=== PATIENT | female | born 1980 | race African-American/Black ===

== ENCOUNTER 2020-08-24 16:39 | Emergency (ER) | payer SELFPAY ==
[~2020-08-24] VITALS: Ht 177.8 cm; Wt 147.0 kg
[2020-08-24] MEDS ORDERED: diphenhydrAMINE HCL 25 MG CAPSULE PO ONE (17:30)
[2020-08-24] MEDS ORDERED: traMADol 50 MG TABLET PO ONE (17:30)
--- NOTE | 2020-08-24 18:18 | RAD ---
INDICATION: Back pain COMPARISON: None. IMPRESSION: Lumbar spine: 3 views obtained. There is some degenerative changes of the lumbar spine with osteophyt e formation at the vertebral body endplates as well as facet hypertrophy. No evidence of dislocation. A definite acute fracture line is not visualized. Electronically signed by: Carlos Santana MD (08/24/2020 6:16 PM) [id number]
--- NOTE | 2020-08-24 18:45 | RAD ---
Exam: Bilateral knees 4 views INDICATION: Knee pain, bilateral TECHNIQUE: Frontal, lateral, oblique and sunrise views of the knees bilaterally Comparisons: None FINDINGS: Left knee: Bone mineralization is normal. No acute or healed fractures. Soft tissues are unremarkable. There is mild joint space narrowing greatest in the lateral compartment. Right knee: Bone mineralization is normal. No acute or healed fractures. Soft tissues are unremarkable. There is mild joint space narrowing greatest at the lateral component. IMPRESSION: No acute osseous abnormality of the right or left knee. Mild degenerative changes described above. Electronically signed by: Demetrio Long MD (08/24/2020 6:42 PM) ANJUM
[2020-08-24] MEDS ORDERED: CYCL-331 PO (19:04)
--- NOTE | 2020-08-24 19:04 | PHYS DOC ---
Past History Past Medical History: Hypertension Alcohol Use: None General Adult EDM: Chief Complaint: BACK PAIN OR INJURY HPI: HPI: Patient is [id number] female who presents with bilateral knee pain and lower back pain. Patient denies injury. Patient states that the back pain started yesterday. Patient denies taking anything for pain. Review of Systems: Review of Systems: Constitutional: Denies fever or chills Eyes: Denies change in visual acuity HENT: Denies nasal congestion or sore throat Respiratory: Denies cough or shortness of breath Cardiovascular: Denies chest pain or edema GI: Denies abdominal pain, nausea, vomiting, bloody stools or diarrhea : Denies dysuria Musculoskeletal: Reports lower back pain, bilateral knee pain Integument: Denies rash Neurologic: Denies headache, focal weakness or sensory changes Endocrine: Denies polyuria or polydipsia Lymphatic: Denies swollen glands Psychiatric: Denies depression or anxiety Current Medications: Current Meds: Current Medications Medications (Trade) Dose Ordered Sig/Theron Start Time Stop Time Status Last Admin Dose Admin Diphenhydramine HCl (Benadryl) 25 mg 1X ONCE 08/24/20 17:30 08/24/20 18:05 DC 08/24/20 17:30 25 MG Tramadol HCl (Ultram) 50 mg 1X ONCE 08/24/20 17:30 08/24/20 18:05 DC 08/24/20 17:30 50 MG Allergies: Allergies: Allergies Coded Allergies Type Severity Reaction Last Updated Verified lisinopril Allergy Intermediate 08/24/20 Yes morphine Allergy Intermediate 08/24/20 Yes Physical Exam: PE: Constitutional: Well developed, well nourished, no acute distress, non-toxic appearance. [] HENT: Normocephalic, atraumatic, bilateral external ears normal, oropharynx moist, no oral exudates, nose normal. [] Eyes: PERRLA, EOMI, conjunctiva normal, no discharge. [] Neck: Normal range of motion, no tenderness, supple, no stridor. [] Cardiovascular:Heart rate regular rhythm, no murmur [] Lungs & Thorax: Bilateral breath sounds clear to auscultation [] Abdomen: Bowel sounds normal, soft, no tenderness, no masses, no pulsatile masses. [] Skin: Warm, dry, no erythema, no rash. [] Back: Lower back tenderness, no CVA tenderness. [] Extremities: Bilateral knee tenderness, no cyanosis, no clubbing, ROM intact, no edema. [] Neurologic: Alert and oriented X 3, normal motor function, normal sensory function, bilateral pedal pulses intact Psychologic: Affect normal, judgement normal, mood normal. [] Current Patient Data: Vital Signs: Vital Signs Date Time Temp Pulse Resp B/P (MAP) Pulse Ox O2 Delivery O2 Flow Rate FiO2 08/24/20 17:30 18 98 08/24/20 17:15 98.2 81 151/92 (111) Room Air EKG: EKG: [] Radiology/Procedures: Radiology/Procedures: [] INDICATION: Back pain COMPARISON: None. IMPRESSION: Lumbar spine: 3 views obtained. There is some degenerative changes of the lumbar spine with osteophyte formation at the vertebral body endplates as well as facet hypertrophy. No evidence of dislocation. A definite acute fracture line is not visualized. Electronically signed by: Carlos Santana MD (08/24/2020 6:16 PM) [id number] Exam: Bilateral knees 4 views INDICATION: Knee pain, bilateral TECHNIQUE: Frontal, lateral, oblique and sunrise views of the knees bilaterally Comparisons: None FINDINGS: Left knee: Bone mineralization is normal. No acute or healed fractures. Soft tissues are unremarkable. There is mild joint space narrowing greatest in the lateral compartment. Right knee: Bone mineralization is normal. No acute or healed fractures. Soft tissues are unremarkable. There is mild joint space narrowing greatest at the lateral component. IMPRESSION: No acute osseous abnormality of the right or left knee. Mild degenerative changes described above. Electronically signed by: Demetrio Long MD (08/24/2020 6:42 PM) [facility] Heart Score: Risk Factors: Risk Factors: DM, Current or recent (<one month) smoker, HTN, HLP, family history of CAD, obesity. Risk Scores: Score 0 - 3: 2.5% MACE over next 6 weeks - Discharge Home Score 4 - 6: 20.3% MACE over next 6 weeks - Admit for Clinical Observation Score 7 - 10: 72.7% MACE over next 6 weeks - Early Invasive Strategies Course & Med Decision Making: Course & Med Decision Making Pertinent Labs and Imaging studies reviewed. (See chart for details) []Patient is a-year-old female who presents with bilateral knee pain and lower back pain. Patient denies injury. Patient states that the back pain started yesterday. Patient denies taking anything for pain. Patient given Toradol, Benadryl for headache and pain. CT of lower back is negative for any acute abnormalities. Bilateral knee x-rays are negative. Explained to patient she needs to be taking ibuprofen and Tylenol at home for discomfort. Rice instructions given. Patient given a prescription for Flexeril. Patient instructed to return to emergency room with worsening symptoms or concerns. Patient agrees with this plan. "I am going to follow-up with my PCP tomorrow over video conference and see what we can do for further testing". Tod Disclaimer: Tod Disclaimer: This electronic medical record was generated, in whole or in part, using a voice recognition dictation system. Departure Departure: Impression: Primary Impression: Low back pain Qualified Codes: M54.5 - Low back pain Additional Impression: Knee pain, bilateral Qualified Codes: M25.561 - Pain in right knee; M25.562 - Pain in left knee Disposition: 01 DC HOME SELF CARE/HOMELESS Condition: GOOD Referrals: PCP,UNKNOWN (PCP) Patient Instructions: Back Pain, Adult Additional Instructions: You were seen in the emergency room for lower back pain and bilateral knee pain. X-rays were negative for any acute abnormalities. You can take ibuprofen at home for pain. Prescription for Flexeril was given to take at home. Please follow-up with your PCP tomorrow for further testing. Please return to the emergency room with worsening symptoms or concerns. EMERGENCY DEPARTMENT GENERAL DISCHARGE INSTRUCTIONS Thank you for coming to [facility] (ED) today and trusting us with you care. We trust that you had a positivie experience in our Emergency Department. If you wish to speak to the department management, you may call the director at [phone]. YOUR FOLLOW UP INSTRUCTIONS ARE FOLLOWS: 1. Do you have a private Doctor? If you do not have a private doctor, please ask for a resource list of physicians or clinics that may be able to assist you with follow up care. 2. The Emergency Physician has interpreted your x-rays. The X-Ray specialist will also review them. If there is a change in the findings, you will be notified in 48 hours when at all possible. 3. A lab test or culture has been done, your results will be reviewed and you will be notified if you need a change in treatment. ADDITIONAL INSTRUCTIONS AND INFORMATION: 1. Your care today has been supervised by a physician who is specially trained in emergency care. Many problems require more than one evaluation for a complete diagnosis and treatment. We recommend that you schedule your follow up appointment as recommended to ensure complete treatment of you illness or injury. If you are unable to obtain follow up care and continue to have a problem, or if your condition worsens, we recommend that you return to the ED. 2. We are not able to safely determine your condition over the phone nor are we able to give sound medical advice over the phone. For these safety reasons, if you call for medical advice we will ask you to come to the ED for further evaluation. 3. If you have any questions regarding these discharge instructions please call the ED at [phone]. SAFETY INFORMATION: In the interest of safety, wellness, and injury prevention; we encourage you to wear your sealbelt, if you smoke; quite smoking, and we encourage family to use a protective helmet for bicycling and other sporting events that present an increased risk for head injury. IF YOUR SYMPTOMS WORSEN OR NEW SYMPTOMS DEVELOP, OR YOU HAVE CONCERNS ABOUT YOUR CONDITION; OR IF YOUR CONDITION WORSENS WHILE YOU ARE WAITING FOR YOUR FOLLOW UP APPOINTMENT; EITHER CONTACT YOUR PRIMARY CARE DOCTOR, THE PHYSICIAN WHOSE NAME AND NUMBER YOU WERE GIVEN, OR RETURN TO THE ED IMMEDIATELY. Scripts Cyclobenzaprine Hcl (CYCLOBENZAPRINE HCL) 10 Mg Tablet 1 TAB PO TID for muscle pain, #15 TAB Prov: ARACELIS JULIEN APRN 08/24/20 ARACELIS JULIEN APRN Aug 24, 2020 19:04
[2020-08-24] MEDS ORDERED: HYDROcodone/APAP 5/325MG 1 TAB TABLET PO ONE (19:15)
[2020-08-24 19:38] VITALS: BP 148/89
== END 2020-08-24 19:38 | disposition home or self-care (01) ==
LOC: ER 16:39
DX: M54.5 Low back pain (principal); G89.29 Other chronic pain; I10 Essential (primary) hypertension
CPT/HCPCS: 72100; 73564; 99284; Q0163

== ENCOUNTER 2020-09-05 14:53 | Emergency (ER) | payer SELFPAY ==
[~2020-09-05] VITALS: Ht 177.8 cm; Wt 154.0 kg
[~2020-09-05 14:53] MED LIST: CYCL-331 PO
[2020-09-05 15:06] VITALS: BP 153/102
[2020-09-05 16:27] LABS: CLARITY,URINE CLEAR; COLOR,URINE COLORLESS; GLUCOSE,URINE >=1000 mg/dL (NEG)
[2020-09-05 16:28] LABS: BACTERIA,URINE 0 /HPF (0-FEW); BILIRUBIN,URINE NEG (NEG); NITRITE,URINE NEG (NEG); SQUAMOUS EPITHELIAL CELL,UR MOD /LPF; UROBILINOGEN,URINE 0.2 mg/dL (0.2 mg/dL); WBC,URINE 0 /HPF (0-4)
[2020-09-05] MEDS ORDERED: METR70GE14 VG (17:09)
[2020-09-05] MEDS ORDERED: DOXY100C14 PO (17:09)
--- NOTE | 2020-09-05 17:09 | PHYS DOC ---
Past History Past Medical History: Anxiety, Depression, Diabetes, Hypertension, Other Additional Past Medical Histor: borderline personality Alcohol Use: Occasionally General Adult EDM: Chief Complaint: PAIN ON URINATION HPI: HPI: 32-year-old homeless female past medical history significant for diabetes, hypertension and anxiety/depression, presents the ED with complaints of burning with urination and external, pruritic vaginal discharge, is concerned for bacterial vaginosis. Reports no production with her recent male sexual partner- states he had recently got back together so STIs are possible. Patient asks if she can leave and we call her with the results. Also reports "hives" when she gets nervous and hospitals stress her out. Denies any associated malodorous discharge, abdominal or pelvic pain or low back pain. States she tried [id number] Monistat with no relief. Review of Systems: Review of Systems: Constitutional: Denies fever or chills Eyes: Denies change in visual acuity HENT: Denies nasal congestion or sore throat Respiratory: Denies cough or shortness of breath Cardiovascular: Denies chest pain or hemoptysis GI: Denies abdominal pain, nausea, vomiting, bloody stools or diarrhea : Denies hematuria, vaginal bleeding Musculoskeletal: Denies back pain or joint pain Integument: Denies diaphoresis or swelling Neurologic: Denies headache, focal weakness or sensory changes Endocrine: Denies polyuria or polydipsia Lymphatic: Denies swollen glands Psychiatric: Denies depression or anxiety Allergies: Allergies: Allergies Coded Allergies Type Severity Reaction Last Updated Verified lisinopril Allergy Intermediate 08/24/20 Yes morphine Allergy Intermediate 08/24/20 Yes Physical Exam: PE: Constitutional: Well developed, well nourished, no acute distress, non-toxic appearance, obese HENT: Normocephalic, atraumatic, Eyes: EOMI, conjunctiva normal, no discharge. Neck: Normal range of motion, supple, Cardiovascular: S1/2 present, regular rhythm Lungs & Thorax: Speaking in full sentences, bilateral equal chest rise, no tachypnea or increased work of breathing Abdomen: soft, no tenderness, Skin: Warm, dry, actively scratching legs that show mild scratch [place] with healed scars and petechiae with underlying redness, no raised wheals or urticaria, Back: No tenderness, no CVA tenderness. [] Extremities: No tenderness, no cyanosis, no lower extremity edema Neurologic: Alert and oriented X 3, normal motor function, normal sensory function, no focal deficits noted. [] Psychologic: Affect normal, judgement normal, mood normal, is disrespectful despite informing her this is the emergency department-not a pcp office, persistent demands and frequently calling her nurse -refusing my recommendations Pelvic:pt refusing "that's too much just give me something for my itchiness," Current Patient Data: Labs: Laboratory Tests Test 09/05/20 15:35 09/05/20 16:06 Urine Collection Type Unknown Urine Color Colorless Urine Clarity Clear Urine pH 6.5 Urine Specific [place] 1.010 Urine Protein Neg (NEG-TRACE) Urine Glucose (UA) >=1000 mg/dL (NEG) Urine Ketones (Stick) 15 mg/dL (NEG) Urine Blood Small (NEG) Urine Nitrite Neg (NEG) Urine Bilirubin Neg (NEG) Urine Urobilinogen Dipstick 0.2 mg/dL (0.2 mg/dL) Urine Leukocyte Esterase Neg (NEG) Urine RBC 3-5 /HPF (0-2) Urine WBC 0 /HPF (0-4) Urine Squamous Epithelial Cells Mod /LPF Urine Bacteria 0 /HPF (0-FEW) POC Urine HCG, Qualitative hcg negative (Negative) Vital Signs: Vital Signs Date Time Temp Pulse Resp B/P (MAP) Pulse Ox O2 Delivery O2 Flow Rate FiO2 09/05/20 15:06 97.9 133 16 153/102 (119) 96 Room Air EKG: EKG: [] Radiology/Procedures: Radiology/Procedures: [] Heart Score: C/O Chest Pain: No Risk Factors: Risk Factors: DM, Current or recent (<one month) smoker, HTN, HLP, family history of CAD, obesity. Risk Scores: Score 0 - 3: 2.5% MACE over next 6 weeks - Discharge Home Score 4 - 6: 20.3% MACE over next 6 weeks - Admit for Clinical Observation Score 7 - 10: 72.7% MACE over next 6 weeks - Early Invasive Strategies Course & Med Decision Making: Course & Med Decision Making Pertinent Labs and Imaging studies reviewed. (See chart for details) Concern for dysuria with unprotected intercourse unprotected vaginal discharge. Recently treated herself with [id number] Monistat with no improvement in symptoms. Pt refusing pelvic exam and refusing to swab herself for wet prep/GC stating "I'm on a timeframe, I just need to get out of here." Patient with medical decision-making capacity and aware without thorough evaluation, life- threatening conditions including sepsis, PID, vaginal hemorrhage are not excluded, can result in infertility, chronic pain and . Patient and says she received something for pain. U/A with no bacteria or wbc.small blood but no flank pain back pain or abdominal pain. Will prescribe Flagyl empiracally with doxycycline, will refer to local health department for STI testing. Will discharge home with strict ED return precautions were given for brisk vaginal bleeding, fever, abdominal or pelvic pain. Encouraged urgent outpatient follow- up with PMD and [facility] [employer]. Life-threatening processes were considered but are low suspicion at this time, given history, physical exam and ED workup. Pt was educated on all prescription medications and adverse effects. All patient's questions were answered and pt was stable at time of discharge. Life/limb-threatening differential includes but is not limited to, AAA/AAD, pid/sepsis/infection, chronic pain, vaginal bleeding/hemorrhage or traumatic injury. I spoken with the patient and her caregivers. I explained the patient's condition, diagnoses and treatment plan based on the information available to me at this time. I have answered the patient and her caregiver's questions and addressed any concerns. The patient and her caregivers have a good understanding of patient's diagnosis, condition and treatment plan as can be expected at this point. Vital signs have been stable. Patient's condition is stable and appropriate for discharge from the emergency department. Patient will pursue further outpatient evaluation with primary care physician or other designated or consulting physician as outlined in the discharge instructions. The patient and/or caregivers are agreeable to this plan of care and follow-up instructions have been explained in detail. The patient and/or caregivers have received these instructions in written form and have expressed an understanding of the discharge instructions. The patient and/or caregivers are aware that any significant change of condition or worsening of symptoms should prompt immediate return to this or the closest emergency department or call to 911. Tod Disclaimer: Tod Disclaimer: This electronic medical record was generated, in whole or in part, using a voice recognition dictation system. Departure Departure: Impression: Primary Impression: Vaginal itching Additional Impression: Dysuria Disposition: 01 DC HOME SELF CARE/HOMELESS Condition: STABLE Referrals: PCP,UNKNOWN (PCP) FOLLOW UP WITH FAMILY MEDICINE: Complete [facility], [facility] [address] [place] [address] OR [facility] [address] [place], [place] [address]paz Wolfg, Patient Instructions: Bacterial Vaginosis, Safe Sex Additional Instructions: FOLLOW UP WITH OBGYN: [facility] [address], [address] [place] [address] EMERGENCY DEPARTMENT GENERAL DISCHARGE INSTRUCTIONS Thank you for coming to [facility] (ED) today and trusting us with you care. We trust that you had a positivie experience in our Emergency Department. If you wish to speak to the department management, you may call the director at [phone]. YOUR FOLLOW UP INSTRUCTIONS ARE FOLLOWS: 1. Do you have a private Doctor? If you do not have a private doctor, please ask for a resource list of physicians or clinics that may be able to assist you with foll ow up care. 2. The Emergency Physician has interpreted your x-rays. The X-Ray specialist will also review them. If there is a change in the findings, you will be notified in 48 hours when at all possible. 3. A lab test or culture has been done, your results will be reviewed and you will be notified if you need a change in treatment. ADDITIONAL INSTRUCTIONS AND INFORMATION: 1. Your care today has been supervised by a physician who is specially trained in emergency care. Many problems require more than one evaluation for a complete diagnosis and treatment. We recommend that you schedule your follow up appointment as re commended to ensure complete treatment of you illness or injury. If you are unable to obtain follow up care and continue to have a problem, or if your condition worsens, we recommend that you return to the ED. 2. We are not able to safely determine your condition over the phone nor are we able to give sound medical advice over the phone. For these safety reasons, if you call for medical advice we will ask you to come to the ED for further evaluation. 3. If you have any questions regarding these discharge instructions please call the ED at [phone]. SAFETY INFORMATION: In the interest of safety, wellness, and injury prevention; we encourage you to wear your sealbelt, if you smoke; quite smoking, and we encourage family to use a protective helmet for bicycling and other sporting events that present an increased risk for head injury. IF YOUR SYMPTOMS WORSEN OR NEW SYMPTOMS DEVELOP, OR YOU HAVE CONCERNS ABOUT YOUR CONDITION; OR IF YOUR CONDITION WORSENS WHILE YOU ARE WAITING FOR YOUR FOLLOW UP APPOINTMENT; EITHER CONTACT YOUR PRIMARY CARE DOCTOR, THE PHYSICIAN WHOSE NAME AND NUMBER YOU WERE GIVEN, OR RETURN TO THE ED IMMEDIATELY. Scripts Metronidazole (METROGEL-VAGINAL) 70 Gm Gel.w.appl 1 APPFUL VG QHS for BV for 5 Days, #70 GM 0 Refills Prov: BINTA JJ DO 09/05/20 Doxycycline Monohydrate (DOXYCYCLINE MONOHYDRATE) 100 Mg Capsule 1 CAP PO BID for sti for 7 Days, #14 CAP Prov: BINTA JJ DO 09/05/20 BINTA JJ DO Sep 05, 2020 17:09
[2020-09-05] MEDS ORDERED: cefTRIAXone IM 500 MG VIAL. IM ONE (17:15)
== END 2020-09-05 17:37 | disposition home or self-care (01) ==
LOC: ER 14:53
DX: N89.8 Other specified noninflammatory disorders of vagina (principal); L29.2 Pruritus vulvae; R30.0 Dysuria; F41.9 Anxiety disorder, unspecified; F32.9 Major depressive disorder, single episode, unspecified; E11.9 Type 2 diabetes mellitus without complications; I10 Essential (primary) hypertension; Z88.6 Allergy status to analgesic agent; Z88.8 Allergy status to other drugs, medicaments and biological substances
CPT/HCPCS: 81001; 81025; 99283